=== PATIENT | male | born 1950 | race African-American/Black ===

== ENCOUNTER 2018-09-07 16:36 | Inpatient (IN) | payer OTHER ==
[~2018-09-07] VITALS: Ht 172.7 cm; Wt 77.1 kg
--- NOTE | ~2018-09-07 | HC ---
[facility] [place] [address] CONSULTATION Name: JUAN FRANCISCO HEALY Room #: 459-P ADM IN M.R.#: [id number] Admission: 09/07/18 ������������������ Attend Phys: Edward Carrington MD Discharge: ������������������ Date of : 48 Report #: [id number] THIS REPORT FOR: //name// CC: Daren Carrington DATE OF SERVICE: 09/08/2018 REASON FOR CONSULTATION: Possible osteomyelitis, right lower extremity with possible need for amputation. HISTORY OF PRESENT ILLNESS: The patient is a poor historian. He does report undergoing toe amputation for approximately 6 weeks ago. He reports being on IV antibiotics for a long time and then apparently was told he was going to require a right below-knee amputation. He wanted to be admitted to [facility] for a second opinion. 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 He had this done approximately in 2006. REVIEW OF SYSTEMS: MUSCULOSKELETAL: See HPI. NEUROLOGIC: Denies numbness or tingling of extremities. ALLERGIES: No known drug allergies. PAST MEDICAL HISTORY: Significant for diabetes, hypertension, chronic kidney disease, peripheral vascular disease. PAST SURGICAL HISTORY: Left above knee amputation. MEDICATIONS: The patient's MAR was reviewed, which shows insulin, carvedilol, hydralazine, meropenem, ondansetron and acetaminophen. LABORATORY STUDIES: Done on 09/08/2018, show white blood cell count of 7, hemoglobin 8, hematocrit 24.6, platelet count 349. ESR is 138. INR is 1.2. Chemistry is grossly normal except for elevated blood glucose levels. I will order a hemoglobin A1c. PHYSICAL EXAMINATION: GENERAL: The patient is awake and alert. He converses but is somewhat of a poor historian and appears to have some difficulty with the timeline and was answering questions appropriately. VITAL SIGNS: Most recent vital signs show temperature of 36.8, heart rate 67, respiratory rate 16, blood pressure 123/55, pulse oximetry is 98% on room air. EXTREMITIES: Examination of his right lower extremity shows a wound measuring approximately 10 cm over the medial aspect of the foot consistent with the toe amputation as well as involving a large portion of the plantar surface. There [facility] [address] [place] [address] CONSULTATION Name: JUAN FRANCISCO HEALY Room #: 459-P ADM IN M.R.#: [id number] Admission: 09/07/18 ������������������ Attend Phys: Edward Carrington MD Discharge: ������������������ Date of : 48 Report #: [id number] is a foul odor. There is no significant erythema. He reports sensation and pain when taking off the dressing. I am unable to appreciate a pulse. He has what appears to be one toe remaining that appears to be the second toe. RADIOGRAPHS: AP and lateral of the right foot shows significant calcification of the arteries. No definite bone destruction is noted. The report was reviewed by myself as well, which was consistent with the above-mentioned finding. IMPRESSION AND PLAN: Right diabetic foot wound, postop toe amputations with a nonhealing wound. There are no definite signs of osteomyelitis that I would appreciate. The wound care team is evaluating this patient. We will order an MRI and continue to follow. The patient may need vascular studies to determine if a below-knee or above knee amputation would be appropriate. Questions were encouraged and answered to the best of my ability. ��������������������������������������������� ���������������������������������������� By: ��������������������������������������������� [id number] Cinthya Boucher MD /nt
[2018-09-07 16:38] VITALS: BP 122/64
[2018-09-07 17:26] LABS: BASOPHILS 2.8 % (0.0-2.0); HEMATOCRIT 25.8 % (42.0-52.0); HEMOGLOBIN 8.8 gm/dL (14.0-18.0); LYMPHOCYTES 29.8 % (24.0-44.0); MCH 30.2 pg (26.0-34.0); MCHC 34.1 g/dL (28.0-37.0); MCV 88.5 fL (80.0-100.0); MONOCYTES 6.4 % (1.0-8.0); PLATELET COUNT 382 thou/uL (150-400); RBC 2.91 mil/uL (4.50-6.00); RDW 17.2 % (10.5-14.5); WBC 8.5 thou/uL (4.0-11.0)
[2018-09-07 17:44] LABS: CALCIUM 8.9 mg/dL (8.5-10.1); CREATININE 1.4 mg/dL (0.7-1.3); POTASSIUM 3.8 mmol/L (3.5-5.1)
[2018-09-07 17:49] LABS: ALBUMIN 1.7 g/dL (3.4-5.0); TOTAL BILIRUBIN 0.2 mg/dL (<0.1-1.0); TOTAL PROTEIN 8.2 g/dL (6.4-8.2)
[2018-09-07 20:35] VITALS: BP 118/81
--- NOTE | 2018-09-07 21:00 | NUR ---
Pt. admitted to the unit from the emergency room accompanied by staff. He offers no c/o pain. Admission assessment and history is completed. Requesting something to eat and box lunch given. Bed alarm is on.
[2018-09-07 21:05] VITALS: BP 127/56
[2018-09-08 03:45] VITALS: BP 127/58
--- NOTE | 2018-09-08 04:58 | NUR ---
Pt. rested quietly in the bed all night and offers no complaints. Bed alarm is on.
[2018-09-08 05:45] LABS: HEMATOCRIT 24.6 % (42.0-52.0); MCH 28.9 pg (26.0-34.0); MCHC 32.4 g/dL (28.0-37.0); MCV 89.1 fL (80.0-100.0); RBC 2.76 mil/uL (4.50-6.00); RDW 17.3 % (10.5-14.5)
[2018-09-08 05:54] LABS: INR 1.2; PROTIME 12.8 Seconds (9.3-11.4)
[2018-09-08 06:04] LABS: CALCIUM 8.5 mg/dL (8.5-10.1); CREATININE 1.3 mg/dL (0.7-1.3); POTASSIUM 3.9 mmol/L (3.5-5.1)
[2018-09-08 07:25] VITALS: BP 123/55
[2018-09-08] MEDS ORDERED: AMLODIPINE BESY10 MG PO (07:37)
[2018-09-08] MEDS ORDERED: ASPIR 8181 MG PO (07:38)
[2018-09-08] MEDS ORDERED: PEPCID20 MG (07:42)
[2018-09-08] MEDS ORDERED: CARVEDILOL12.5 MG PO (07:42)
[2018-09-08] MEDS ORDERED: IRON325 PO (07:43)
[2018-09-08] MEDS ORDERED: HYDRALAZINE 2525 MG PO (07:44)
[2018-09-08] MEDS ORDERED: LANTUS100 UNIT/M SUBQ (07:45)
[2018-09-08] MEDS ORDERED: LEVOCETIRIZINE D5 MG PO (07:47)
[2018-09-08] MEDS ORDERED: MIRALAX17 GM PO (07:47)
[2018-09-08] MEDS ORDERED: CENTRUM SILVER1 EAC2 PO (07:48)
[2018-09-08] MEDS ORDERED: NOVOLOG100 UNIT/1 SUBQ ×2 (07:50→07:52)
[2018-09-08] MEDS ORDERED: BETADINE1 EACH TOP (07:55)
--- NOTE | 2018-09-08 15:25 | NUR ---
WOUND CARE: WET TO DRY, ABX, KERLIX. PHYSICIAN ASSESSED, DIET GRANTED, PT DELIGHTED, WATCHING BIG 12 ALL DAY, CATCHING UP W/HEALTHY SNACKS
[2018-09-08 16:30] VITALS: BP 161/67
[2018-09-08 19:44] VITALS: BP 126/68
[2018-09-09 03:10] LABS: GLYCOHEMOGLOBIN (HGB A1C) 7.7 % (4.8-5.6)
--- NOTE | 2018-09-09 03:23 | NUR ---
PT DENIED PAIN,N/V SO FAR.REPOSITIONED WHILE IN BED PER PT'S REQUEST.DRSG TO HIS R FOOT C/D/I.IV FLUID AND IV ABX ADMINISTERED ORDERED.PO FLUIDS ENCOURAGED.URINAL AT BEDSIDE,ADEQUATE OUTPUT NOTED.PT RESTING ON HIS BED AT THIS TIME.CALL LIGHT WITHIN REACH.
[2018-09-09 03:56] VITALS: BP 128/74
--- NOTE | 2018-09-09 04:56 | HC ---
[facility] [place] [address] CONSULTATION Name: JUAN FRANCISCO HEALY Room #: 459- ADM IN M.R.#: [id number] Admission: 09/07/18 ������������������ Attend Phys: Edward Carrington MD Discharge: ������������������ Date of : 48 Report #: [id number] THIS REPORT FOR: //name// CC: Daern Carrington DATE OF SERVICE: 09/08/2018 INFECTIOUS DISEASE CONSULTATION: ATTENDING PHYSICIAN: Dr. Edward Carrington. REASON FOR EVALUATION: Osteomyelitis involving the distal aspect of the right lower extremity. HISTORY OF PRESENT ILLNESS: Chart reviewed, patient examined. This is a 68-year-old gentleman with diabetes mellitus, has been complicated by severe vasculopathy, has had previous left above-knee amputation. He has had chronic ulceration associated with the right lower extremity. It is quite extensive, necrotic and had been evaluated in the other facility, did receive an extended period of parenteral therapy with meropenem. This was for polymicrobial etiology. He was at a long-term facility, felt his wounds were not progressing and potentially worsening. He is not able to give too much details of history. He does state that there is no pain associated with the wounds, although he claims he has good feeling. He has not had fevers, chills or shakes. He does admit to anorexia and weight loss of perhaps 20 pounds. Denies any significant pulmonary or gastrointestinal related complaints. He was on meropenem for extended period of time and was restarted on admission. He was found to have sed rate of 138. His creatinine is borderline elevated at 1.4 and he is anemic. ALLERGIES: None known. MEDICATIONS: Currently include insulin, meropenem, acetaminophen, ondansetron as needed. PAST MEDICAL HISTORY: Diabetes mellitus complicated by vasculopathy, has known renal insufficiency, has peripheral vascular disease, previous left above knee amputation, also has hypertension. SOCIAL HISTORY: Former smoker. No ethanol. No illicit drug use. FAMILY HISTORY: Noncontributory. REVIEW OF SYSTEMS: Ten point review of system is otherwise unremarkable with exception noted above in the history of present illness. [facility] [address] [place] [address] CONSULTATION Name: JUAN FRANCISCO HEALY Room #: 459-P ADM IN M.R.#: [id number] Admission: 09/07/18 ������������������ Attend Phys: Edward Carrington MD Discharge: ������������������ Date of : 48 Report #: [id number] PHYSICAL EXAMINATION: GENERAL: He appears chronically ill, undernourished. He is pleasant, cooperative. I think he may have a degree of some dementia. VITAL SIGNS: T-max of 99, more recently 98, pulse 70, respirations 18, blood pressure 127/58. SKIN: Warm, dry. HEENT: Normocephalic. Extraocular muscles intact. NECK: Supple. LUNGS: Diminished breath sounds, occasional crackle at the base. HEART: Regular. I do not appreciate a murmur. ABDOMEN: Soft, nontender, nondistended. EXTREMITIES: Distal right lower extremity is wrapped, although I did review the photographs that have extensive necrosis that extends certainly above the ankle on to the leg. There is clear malodor component as well. LABORATORY AND X-RAY DATA: Initial CBC: White count of 8.5, H and H 8.8/25.8, platelets of 382. CRP of 74.1. Lactic acid 1.5. Sed rate of 138. Electrolytes: Sodium 140, potassium 3.8, chloride 104, bicarbonate is 31, anion gap of 5, BUN and creatinine 20 and 1.4, glucose of 188, this was nonfasting. LFTs unremarkable. Total protein of 8.2, albumin of 1.7, estimated GFR of 61. PT of 12.8, INR 1.2. ASSESSMENT: Severe infection involving the distal aspect of the right lower extremity. Based on previous results, certainly suggests deep-seated infection, probably osteomyelitis on the available imaging. I think it is unlikely that sort of amputation would definitively cure this infection. I noted surgery is going to evaluate as well. It is unclear based on discussion whether he would be agreeable to that sort of intervention. We will continue the meropenem for now. I will go ahead and get blood cultures since it is not apparent that they have been done. ��������������������������������������������� <ELECTRONICALLY SIGNED> ���������������������������������������� By: Will Rebolledo MD ��������������������������������������������� 09/09/18 0456 [id number] 1939 Will Rebolledo MD /nt
[2018-09-09 10:45] VITALS: BP 125/71
[2018-09-09 14:22] VITALS: BP 124/63
--- NOTE | 2018-09-09 19:20 | NUR ---
PT ALERT AND ORIENTED TIMES THREE, WITH PERIODS OF CONFUSION. VSS, 98%RA, IVF INFUSING PER ORDER. DRESSING TO RIGHT FOOT CHANGED THIS SHIFT SMALL AMOUNT OF BLODDY DRAINAGE NOTED. PT DENIES PAIN/SOA. PT TOLERATES MEDS AND MEALS. WILL CONTINUE TO MONITOR.
[2018-09-09 19:35] VITALS: BP 133/67
--- NOTE | 2018-09-10 01:44 | NUR ---
Assumed care at 1845. Pt resting in bed. Wet to dry dressing applied on wound. Pictures on chart. Pt denies chest pain. No identified needs. Will continue to monitor.
[2018-09-10 04:27] VITALS: BP 135/76
[2018-09-10 08:00] VITALS: BP 138/73
[2018-09-10 15:00] VITALS: BP 145/66
--- NOTE | 2018-09-10 16:47 | NUR ---
PT ADMITTED RELATED TO SOA,AMS. CM REVIEWED CHART AND SPOKE WITH CARE TEAM. CM MET WITH PT AT BEDSIDE THIS DAY. PT IS A&O X4. CM ROLE INTRODUCED. PT INDICATED HE HAD BEEN AT [facility]. PT INDICATED HE HAD BEEN THERE FOR ABOUT 6 WEEKS AND THAT PRIOR TO THAT HE HAD BEEN AT [facility]. PT INDICATED THAT HE PLANS TO RETURN TO [facility] ONCE MEDICALLY STABLE. NAVNEET WITH [facility] VISITED WITH PT AND CM PROVIDED HER WITH UPDATED THIS AFTERNOON. CM TO FOLLOW INDICATED WITH DC PLANNING.
[2018-09-10 19:20] VITALS: BP 143/73
--- NOTE | 2018-09-10 19:55 | NUR ---
Assumed pt care this morning, pt was taken down to have an MRI of his right foot. Pt would be confused at times. Blood sugars done and medication given. Seen by wound care team, dressing changed. Pt refused to eat his dinner claiming he does not eat chicken and pork, informed the pm nurse. Gave the pt a boxed lunch. No issues or complaints verbalized by the pt at this time.
[2018-09-11 04:02] LABS: CALCIUM 8.6 mg/dL (8.5-10.1); CREATININE 1.1 mg/dL (0.7-1.3); POTASSIUM 3.9 mmol/L (3.5-5.1)
[2018-09-11 04:11] VITALS: BP 130/72
[2018-09-11 04:36] LABS: ABSOLUTE NEUTROPHILS 3.9 thou/uL (1.4-8.2); BASOPHILS 0.6 % (0.0-2.0); EOSINOPHILS 1.9 % (0.0-3.0); HEMATOCRIT 26.5 % (42.0-52.0); HEMOGLOBIN 8.7 gm/dL (14.0-18.0); LYMPHOCYTES 36.6 % (24.0-44.0); MCHC 32.7 g/dL (28.0-37.0); MCV 88.8 fL (80.0-100.0); MONOCYTES 10.3 % (1.0-8.0); PLATELET COUNT 385 thou/uL (150-400); POLYS 50.6 % (36.0-66.0); RBC 2.99 mil/uL (4.50-6.00); RDW 16.7 % (10.5-14.5); WBC 7.7 thou/uL (4.0-11.0)
--- NOTE | 2018-09-11 05:18 | NUR ---
Pt. rested quietly during the night when checked on during frequent rounds. He offers no c/o pain. Dressing to his right lower leg is dry and intact. Refuses to be turned and repositioned. Bed alarm is on.
[2018-09-11 08:51] VITALS: BP 128/73
[2018-09-11 09:09] LABS: GLOBULIN TOTAL 4.6 g/dL (2.2-3.9); M-SPIKE Not Observed g/dL (Not Observed)
[2018-09-11 16:21] VITALS: BP 122/64
--- NOTE | 2018-09-11 16:51 | NUR ---
AWAITING VASCULAR STUDIES. CM TO FOLLOW INDICATED WITH DC PLANNING.
--- NOTE | 2018-09-11 18:10 | NUR ---
PT STABLE THROUGHOUT SHIFT. PT HAD LAVAGE TREATMENT WHICH HE TOLERATED WELL. CHANGED DRESSING ON FOOT. PT RESTING COMFORTABLY.
[2018-09-11 21:09] VITALS: BP 124/63
[2018-09-12] VITALS (9 sets, daily range): BP systolic 110–135; BP diastolic 57–75
--- NOTE | 2018-09-12 02:58 | NUR ---
PATIENT AOX4 MAKES NEEDS KNOWN. PATIENT IS NPO SINCE MIDNIGHT PER DR. KAN. RIGHT FOOT HAS A STRONG ODOR, DRESSING IS C/D/I. PATIENT DENIED PAIN OR DISCOMFORT. PATIENT REFUSED TO BE TURNED, PATIENT REFUSED THIS NURSE TO REMOVE RIGHT FOOT PROSTHETIC. PATIENT IN BED ASLEEP AT THIS TIME BREATHING REGULAR AND UNLABOURED.
--- NOTE | 2018-09-12 12:37 | HC ---
[facility] [place] [address] CONSULTATION Name: JUAN FRANCISCO HEALY Room #: 459-P [facility] IN M.R.#: [id number] Admission: 09/07/18 ������������������ Attend Phys: Carolina Meza Discharge: ������������������ Date of : 48 Report #: [id number] THIS REPORT FOR: //name// CC: Daren Meza DATE OF SERVICE: 09/10/2018 CHIEF COMPLAINT: Diabetic foot ulceration of the right foot, status post transmetatarsal amputation. HISTORY OF PRESENT ILLNESS: This is a 68-year-old male patient who has had previous care at [facility]. He has chronic diabetic foot ulceration with osteomyelitis and he is status post left above knee amputation. He has current history of diabetes mellitus and has been a resident at [facility]. He cannot remember a lot of details, but he apparently has had a transmetatarsal amputation done at [facility]. He was told he needed a higher level amputation. He refused. He has been admitted here with infection of the right foot and ongoing need for wound care. He has already been seen by Orthopedics and Infectious Disease and I have been asked to provide an opinion regarding care of his right foot. The patient denies pain associated with this. He cannot recall exactly when he started having trouble with ulcerations. PAST MEDICAL HISTORY: Positive for diabetes mellitus, hypertension, chronic kidney disease, peripheral vascular disease. Unclear as to what procedures he has had for his vascular disease. He has had previous left above knee amputation. MEDICATIONS: Include insulin, carvedilol, meropenem, ondansetron, acetaminophen, hydralazine. ALLERGIES: None. SOCIAL HISTORY: Positive for previous smoker. No alcohol use. FAMILY HISTORY: Noncontributory. REVIEW OF SYSTEMS: CONSTITUTIONAL: The patient denies fever, chills or weight loss. NEUROLOGIC: The patient denies focal weakness, numbness or tingling. EYES: The patient denies any visual changes, redness or drainage. ENT: The patient denies earache, nasal drainage or sore throat. CARDIOVASCULAR: The patient denies chest pain, palpitations or diaphoresis. PULMONARY: The patient denies cough or shortness of breath. GASTROINTESTINAL: The patient denies nausea, vomiting, diarrhea or abdominal [address] [address] CONSULTATION Name: JUAN FRANCISCO HEALY Room #: 459-P [facility] IN M.R.#: [id number] Admission: 09/07/18 ������������������ Attend Phys: Carolina Meza Discharge: ������������������ Date of : 48 Report #: [id number] pain. ORTHOPEDIC: The patient has a previous left above-knee amputation. He has a current transmetatarsal amputation of his right foot. Other systems in a 14-point review of systems are negative. PHYSICAL EXAMINATION: VITAL SIGNS: At this time include temperature 98.6, pulse 77, respiratory rate 20, blood pressure 145/66. GENERAL: This is a chronically ill-appearing male patient who appears to be in no distress. HEENT: Head normocephalic. Nose and throat are clear. NECK: Supple. LUNGS: Clear. HEART: Regular. ABDOMEN: Soft. Bowel sounds present. EXTREMITIES: Demonstrate the left leg appears to have above-knee amputation. He has prosthesis in place. I have not evaluated the stump. He denies that there are any problems with it. Right foot demonstrates a frankly necrotic distal portion of his foot. There is exposed bone. There is some granulation tissue. There is some purulent drainage that can be expressed with compression of the foot. There is a significant amount of tissue loss involving both dorsal and plantar aspects of his right foot. NEUROLOGIC: The patient is alert. He does move all 4 extremities spontaneously. He has significantly diminished sensation in his lower extremities. LABORATORY STUDIES: Include sodium 139, potassium 3.9, chloride 105, CO2 of 28, BUN 17, creatinine 1.3, glucose is 248, white blood cell count is 8.5 with a hemoglobin of 8.8. Hemoglobin A1c is 7.7. Albumin is 1.7. CLINICAL IMPRESSION: 1. Diabetic foot ulceration, status post partial transmetatarsal amputation of the right foot, now with significant tissue necrosis and tissue loss. 2. History of diabetes mellitus. 3. History of peripheral vascular disease, ill-defined. RECOMMENDATIONS: At this point in time, we will check arterial Dopplers and make sure that we have maximized his blood flow. We will recommend a Dakin's moist gauze dressing to the right foot pulse lavage. He has a large amount of necrotic tissue. He may require additional debridement, possibly operative. In my opinion, it is highly unlikely that his foot will be salvageable and I suspect he would be best served with higher level amputation. I have reviewed these findings with Orthopedics. The patient at this point in time; however, is not willing to proceed with higher level amputation. We will do what we can for him. He is being followed by Infectious Disease. We will continue with local [facility] [address] [place] [address] CONSULTATION Name: JUAN FRANCISCO HEALY Room #: 459-P ADM IN M.R.#: [id number] Admission: 09/07/18 ������������������ Attend Phys: Carolina Meza Discharge: ������������������ Date of : 48 Report #: [id number] care, although once again I do not feel that the foot is likely to be salvageable. ��������������������������������������������� <ELECTRONICALLY SIGNED> ���������������������������������������� By: Jesus Driscoll MD ��������������������������������������������� 09/12/18 1237 0719 02 Jesus Driscoll MD /nt
--- NOTE | 2018-09-12 16:17 | NUR ---
PT HAVING ARTERIOGRAM TODAY. CARE TEAM LOOKING AT POSSIBLE BKA MONDAY. PT WILL RETURN TO [facility] ONCE MEDICALLY STABLE. CM TO FOLLOW INDICATED WITH DC PLANNING.
--- NOTE | 2018-09-12 18:15 | NUR ---
Pt A&Ox4, VSS with no c/o of pain. No SOA or distress observed. Right foot dressing intact. Left groin dressing intact and no swelling. Pt left leg is straight and head up at the 30 degree limit. Pt has dinner and is resting. Will continue to monitor.
[2018-09-13 03:57] VITALS: BP 119/65
[2018-09-13 07:15] VITALS: BP 139/69
--- NOTE | 2018-09-13 11:18 | NUR ---
WOUND CONSULT: PT. WAS SEEN TODAY BY DR. SIFUENTES AND MYSELF. PT. HAS A VASCULAR WOUND TO HIS RIGHT FOOT. PT. HAS HAD A FAILED TRANSMET AND THERE IS EXPOSED BONE. PT. TOE THAT IS LEFT IS DRY, AND NECROTIC. THE PLANTER SURFACE OF THE FOOT IS COVER IN SLOUGH AND A FOUL ODOR IS NOTED AT THIS TIME. PT. HAS CONFIRED OSTEO ALONG WITH A SIGNIFICANT INFECTION. ANGIOGRAM WAS ATTEMPTED YESTERDAY AND THERE IS NOT VIABLE OPTIONS FOR BLOOD HINDU TO AID IN BLOOD FLOW. PT. HAS BEEN SEEN BY WOUND CARE, ID AND ORTHO. ALL HAVE EXPLAINED TO THE PT. THAT HE NEEDS TO HAVE AN AMPUTATION AND PT. AT THIS TIME IS REFUSING TO HAVE THIS PROCEDURE. PT. HAS BEEN EXPLAINED ON THE RISK AND BENIFITS OF HIS CHOICE. RECOMMENDATIONS: DAKIN'S MOIST GAUZE DRESSING BID AT THIS TIME. PT. AND STAFF NURSE WERE INSTRUCTED ON PLAN OF CARE.
[2018-09-13 14:20] VITALS: BP 127/67
--- NOTE | 2018-09-13 18:42 | NUR ---
ASSUMED CARE AT 0700. PT A&OX4. PT IS FUSSY TODAY. ORTHO DR MIRANDA AND PT TOLD HER HE DID NOT AGREE THAT HE NEEDED AMPUTATION, PT PROCEEDED TO TELL WOUND PHYSICIAN THAT HE THOUGHT HE WOULD TRY MORE WOUND CARE AND NO AMPUTATION. ID PHYSICIAN SPOKE AT LENGTH OF SEVERITY OF WOUNDS AND NEEDS AND PT STATES HE MAKE A DECISION "SOON". PT DOES NOT WANT TO TURN AND GETS VERY UPSET WHEN YOU ASK HIM TO. PT REFUSED BATH AFTER MUCH ENCOURAGEMENT.
[2018-09-13 21:21] VITALS: BP 151/64
--- NOTE | 2018-09-14 03:18 | NUR ---
PT ANGRY AND AGITATED WITH STAFF PT WAS ABLE TO SLEEP ON AND OFF NO COMPLAINTS OF PAIN PT USED CALL LIGHT EFFECTIVELY.
[2018-09-14 05:47] VITALS: BP 142/63
[2018-09-14 08:00] VITALS: BP 127/60
--- NOTE | 2018-09-14 12:41 | NUR ---
CALL RECEIVED FROM NAVNEET [facility]. REQUESTING CLINICAL UPDATES FOR PATIENT. PRINTED AND FAXED TO HER, VERIFIED RECEIVED. PATIENT IS FROM [facility], PLAN IS FOR PATIENT TO RETURN ONCE MEDICALLY READY. FOLLOWING TO ASSIST WITH DISCHARGE NEED. UNIT SW AWARE.
--- NOTE | 2018-09-14 15:20 | NUR ---
WOUND FOLLOW UP: PT. WAS SEEN TODAY BY DR. SOTO AND MYSELF. PT. IS NOW AGREEABLE TO PROCEED WITH AN RIGHT BKA. RECOMMENDATIONS: CONTINUE WITH CURRENT PLAN OF CARE. PT. AND STAFF NURSE WERE INSTRUCTED ON PLAN OF CARE.
[2018-09-14 15:50] VITALS: BP 145/82
--- NOTE | 2018-09-14 16:11 | NUR ---
PT IS NOW AGREEABLE WITH [facility] PRODEDURE IS SCHEDULE FOR 0830 TOMORROW MORNING. CM NOTIFIED NAVNEET LIAISON WITH [facility]. CM TO FOLLOW INDICATED WITH DC PLANNING.
--- NOTE | 2018-09-14 20:01 | NUR ---
Assumed pt care this am, wound care done and dressing changed. Pt refused a bed bath. Pt agreed to have right bka, consents signed attached to the chart. Blood sugars done and all medication given as per poc. Pt is to be NPO this midnight in preparation for the procedure marybeth. No issues or concerned voiced. POC followed
[2018-09-14 20:51] VITALS: BP 128/56
[2018-09-15] VITALS (8 sets, daily range): BP systolic 126–155; BP diastolic 59–82
[2018-09-15 04:37] LABS: BASOPHILS 0.5 % (0.0-2.0); EOSINOPHILS 2.4 % (0.0-3.0); HEMATOCRIT 24.1 % (42.0-52.0); HEMOGLOBIN 8.1 gm/dL (14.0-18.0); MCH 29.5 pg (26.0-34.0); MCHC 33.5 g/dL (28.0-37.0); MCV 88.2 fL (80.0-100.0); MONOCYTES 9.9 % (1.0-8.0); PLATELET COUNT 350 thou/uL (150-400); POLYS 56.2 % (36.0-66.0); RBC 2.73 mil/uL (4.50-6.00); RDW 17.2 % (10.5-14.5); WBC 7.1 thou/uL (4.0-11.0)
[2018-09-15 04:48] LABS: INR 1.2; PROTIME 12.3 Seconds (9.3-11.4)
[2018-09-15 04:53] LABS: ALBUMIN 1.4 g/dL (3.4-5.0); CALCIUM 8.3 mg/dL (8.5-10.1); CREATININE 0.9 mg/dL (0.7-1.3); POTASSIUM 3.7 mmol/L (3.5-5.1); TOTAL BILIRUBIN 0.1 mg/dL (<0.1-1.0); TOTAL PROTEIN 6.9 g/dL (6.4-8.2)
--- NOTE | 2018-09-15 05:59 | NUR ---
A/O, calm and cooperative; vss, afebrile; no n/v. Hg 8.1 this AM. patient is aware of the coming surgery. NPO after midnight, tolerated well.
--- NOTE | 2018-09-15 08:08 | NUR ---
Pt is on NPO since midnight, asleep when received on shift changed. Pt has not been taken down to OR for the amputation.
[2018-09-16 03:55] VITALS: BP 143/72
[2018-09-16 04:54] LABS: HEMATOCRIT 28.2 % (42.0-52.0); HEMOGLOBIN 9.6 gm/dL (14.0-18.0)
--- NOTE | 2018-09-16 07:38 | NUR ---
PROGRESS PT ALERT AND RESPONSIVE, VSS IVF'S INFUSING WITHOUT DIFFICULTY. REFUSED PAIN MEDICATION. REQUESTED POTATO CHIPS SLEPT MOST OF SHIFT. REPOSITIONED SELF. CONTINUE TO MONITOR
[2018-09-16 08:00] VITALS: BP 136/67
[2018-09-16 14:12] VITALS: BP 125/48
--- NOTE | 2018-09-16 14:58 | NUR ---
ASSUMED CARE AT 0700. AXOX4. R BKA SITE DRESSING DRY AND INTACT. PER ORTHO PAULA MARTIN, LEAVE THE DRESSING IN TILL TOMORROW AND ORTHO WILL EVAL AND GIVE FURTHER RECOMMENDATION FOR CARE. DIET ADVANCED TO HEART HEALTHY. ID D/C [place]. STILL ON IVF. NO S/S ACUTE DISTRESS NOTED OR REPORTED AT THIS TIME. WILL CONT TO MONITOR ANY CHANGES.
--- NOTE | 2018-09-16 19:24 | EKG ---
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 WILKS : 1950 Requested By: Cinthya Boucher Order Number: [id number] MD: Quentin Cardenas Measurements Intervals Holden Rate: 77 P: 38 [place]: 143 QRS: 24 QRSD: 77 T: QT: 390 QTc: 442 Interpretive Statements Sinus rhythm Nonspecific ST/T abnormalities No previous ECG available for comparison Electronically Signed On 09-16-2018 19:24:09 ARGON TESTER by Quentin Cardenas [email or web address] ��������������������������������������������� <ELECTRONICALLY SIGNED> ���������������������������������������� By: Quentin Cardenas MD ��������������������������������������������� 09/16/18 1924 1806 180 Quentin Cardenas MD /ADELE
[2018-09-16 19:25] VITALS: BP 134/44
[2018-09-17 04:42] VITALS: BP 131/56
[2018-09-17 07:34] VITALS: BP 141/72
--- NOTE | 2018-09-17 08:27 | NUR ---
PROGRESS UNEVENTFUL NIGHT. PT DENIES PAIN, REFUSED TURNS BUT ATTEMPTED TO REPOSITION SELF WHEN REQUESTED. IVF'S INFUSING ORDERED, HYDRALAZINE HELD D/T LOW BP. ON RA TELE INTACT CONTINUE POC.
--- NOTE | 2018-09-17 10:11 | NUR ---
dp sent updates to [facility] and notified Annalisa/sade to expect updates.
--- NOTE | 2018-09-17 13:44 | NUR ---
WOUND FOLLOW UP: PT. WAS SEEN TODAY BY DR. SOTO AND MYSELF. PT. UNDERWENT A RIGHT BKA ON 09/15/18. PT. SURGICAL DRESSING WAS CHANGED TODAY BY WOUND CARE. INCSION IS WELL APPROXIMATED AND FREE OF ANY SIGNS OR SYMPTOMS OF INFECTION AT THIS TIME. PER ORTHO WOUND CARE WILL PULL THE PINROSE DRAIN TOMORROW. RECOMMENDATIONS: CONTINUE WITH CURRENT PLAN OF CARE. PT. AND STAFF NURSE WERE INSTRUCTED ON PLAN OF CARE.
[2018-09-17 14:17] VITALS: BP 145/75
--- NOTE | 2018-09-17 14:33 | NUR ---
ASSUME PT CARE AT 0700. VSS ON RA. BS MONITOR INSULIN AND B/P MEDICATIONS GIVEN AT ORDERED. PT IS CONTINUE TO BE ON NS 0.9% 75ML/HR. B/P HAS BEEN ABOUT 141/72 - 140/75. ENCOURAGED PT TO DRINK MORE SO HE DOESN'T NEED TO BE ON FLUID. PHYSICAL THERAPIST WORKED WITH PT AND GOT PT UP TO RECLINER. NO TRANSFER EXCEPT PT AT THIS MOMENT. WOUND NURSE CAME TO CHANGE SURGICAL DRESSING THIS AM. POLY AREA SUPERVISOR CAME TO GIVE PT DIRECT SERVICE PROVIDER STUMP. PT IS MORE CALM AND COOPERATIVE TODAY, BUT REFUSED TAKING BATH BY COMM[employer]ITY [employer] TODAY. USES URINAL AT BEDSIDE. HAD ONE INCONT THIS AM WHEN PHYSICAL THERAPIST GOT HIM UP TO RECLINER. DENIES PAIN. OFFERED SUPPORTIVE CARE. CHANGE DRESSING ON IV ON RIGHT AC. ENCOURAGED PT TO CHANGE POSITION IN BED. FALL PRECAUTION IN PLACE. REASSESSMENT PER CHART. LABS REVIEWED. HGB IS BETTER 9.6. CALL LIGHT WITHIN REACH. ENCOURAGED PT TO VOICE HIS NEEDS. REPORTS SLEPT WELL LAST NIGHT.
--- NOTE | 2018-09-17 15:48 | NUR ---
PT AND OT TO EVAL PT. CLINICAL UPDATES SENT TO [facility] THIS DAY. IT IS ANTICPATED THAT PT WILL RETURN TO [facility] FOR SKILLED REHAB SERVICES ONCE MEDICALLY STABLE. CM TO FOLLOW INDICATED WITH DC PLANNING.
[2018-09-17 20:43] VITALS: BP 146/68
[2018-09-18 04:42] VITALS: BP 150/79
[2018-09-18 07:30] VITALS: BP 140/75
--- NOTE | 2018-09-18 08:10 | NUR ---
PROGRESS PT ALERT AND ORIENTED, DENIEES PAIN, REFUSING ASSISTANCE REPOSITIONING BUT STATES HE REPOSITIONS SELF BUT CONSISTENTLY SUPINE. 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
[2018-09-18 08:25] VITALS: BP 140/75
--- NOTE | 2018-09-18 11:28 | NUR ---
patient will dc today to [facility], Discharge papers faxed to Annalisa/MELISSA and to department secretary Gilma on 4w to include in cc. Pickup time is 130 to 2pm today amando lyn. No family to notifiy. DP called Annalisa to confirm pu time and let her know to expect dc papers and to call if not received.
--- NOTE | 2018-09-18 13:06 | NUR ---
WOUND FOLLOW UP: PT. WAS SEEN TODAY BY DR. BURRIS AND MYSELF. PT. LILY DRAIN WAS REMOVED TODAY BY WOUND CARE. SURGICAL INCSION IS WELL APPROXIMATED AND PT. TOLERATED PROCEDURE AND DRESSING CHANGE WELL. RECOMMENDATIONS: CONTINUE WITH CURRENT PLAN OF CARE. PT. AND STAFF NURSE WERE INSTRUCTED ON PLAN OF CARE.
--- NOTE | 2018-09-18 13:07 | NUR ---
ASSUMED CARE AT 0700. AXOX4. SEEN BY AT BEDSIDE. RECEIVED AN ORDER TO D/C BACK TO [facility]. REPORT CALLED TO TALYA. DRESSING ON R BKA SITE RENDERED WITH WOUND CARE TEAM. 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 VSS. IV REMOVED. NO S/S ACUTE DISTRESS NOTED OR REPORTED UPON DEPARTURE. CHART COPY AND PRESCRIPTIONS SEND WITH PT WELL BELONGINGS. LEFT THE FLOOR IN STABLE CONDITION.
--- NOTE | 2018-09-18 14:25 | NUR ---
CARE TEAM INDICATED THAT PT IS MEDICALLY STABLE TO DISCHARGE BACK TO [facility] TODAY. CM NOTIFIED LIAISON [facility]ET AND [facility]SPORT WAS ARRANGED BETWEEM 1330 AND 1430. CHART COPY ORDERED. ORFERS WERE FACES. SHART COPY ORDERED. REPORT TO BE CALLED TO . PT IS AWARE AND AGREEABLE, NO OTHER CM IINTERVENTION INDICATED AT THIS TIME. CASE CLOSED.
--- NOTE | 2018-09-19 10:09 | O ---
[facility] [place] [address] OPERATIVE REPORT Name: JUAN FRANCISCO HEALY Room #: 459-P [facility] IN M.R.#: [id number] Admission: 09/07/18 ������������������ Attend Phys: Carolina Meza Discharge: 09/18/18 ������������������ Date of : 48 Report #: [id number] THIS REPORT FOR: //name// CC: Daren Meza PREOPERATIVE DIAGNOSES: Right lower extremity nonhealing ulcerations, right foot osteomyelitis, diabetic neuropathy and peripheral vascular disease. POSTOPERATIVE DIAGNOSES: Right lower extremity nonhealing ulcerations, right foot osteomyelitis, diabetic neuropathy and peripheral vascular disease. PROCEDURE PERFORMED: Right below knee amputation. SURGEON: Avery Ortez MD WELDING MACHINE OPERATOR RESISTANCE: Tayler Diaz PA-C. ANESTHESIA: General. FLUIDS: Please see anesthesia records. ESTIMATED BLOOD LOSS: Approximately 25 mL. SPECIMENS: Right lower extremity/foot. DESCRIPTION OF PROCEDURE: After proper identification of the patient and operative site in preoperative holding area, the operative site was signed by myself. Prophylactic antibiotics given. The patient has been on antibiotics for his nonhealing wound. The patient is originally being seen and treated by my partner, Dr. Cinthya Boucher for his nonhealing right lower extremity ulcerations and osteomyelitis since his admission. He has also been at other hospital institutions in the city recently. He has consented to the above procedure and wished to proceed with the above. We reviewed the potential risks, benefits, alternatives and complications of his injury and treatment. He was brought back to the operative suite after induction of satisfactory general anesthesia. The right lower extremity was elevated, tourniquet was applied to the upper thigh. The leg was sterilely prepped and draped in the usual manner with his nonhealing wound and ulcerations of the foot covered sterilely. An incision was planned for the below knee amputation with a fishmouth type incision with a longer posterior myocutaneous flap. Skin was incised sharply. Full thickness skin flaps were developed. Tibia was exposed subperiosteally and an osteotomy was performed approximately a handsbreadth below the level of the knee joint. Neurovascular structures were identified in the anterolateral compartment. They were tied with silk ties, cauterized and nerves were retracted distally and sectioned proximally. Next, the fibula was identified and resected and posterior compartment vasculature or neurovascular bundles were [address] [address] OPERATIVE REPORT Name: NIRAJJUAN FRANCISCO Room #: 459-P [facility] M.R.#: [id number] Admission: 09/07/18 ������������������ Attend Phys: Carolina Meza Discharge: 09/18/18 ������������������ Date of : 48 Report #: [id number] identified and treated in similar manner. A posterior myocutaneous flap was fashioned that nicely covered the wound. Edges of the bone had been contoured as well as rasped. No sharp or protruding edges were noted. Tourniquet was deflated. There was excellent hemostasis. A punctate bleeding from the soft tissues was noted and this appeared to be all viable tissue. This wound was irrigated with antibiotic irrigant. A Marcelle drain was placed and the fascial layer was repaired with #1 Vicryl, 0 Vicryl, more subcutaneous tissues with 2-0 Vicryl and then closure was followed with nylon sutures. [place] drain was able to be pulled in the medial and lateral directions and verified to not be sewn in. Sterile compressive dressing was applied. He was awakened and transferred to the recovery room in stable condition. ��������������������������������������������� <ELECTRONICALLY SIGNED> ���������������������������������������� By: Avery Ortez MD ��������������������������������������������� 09/19/18 1009 [id number] [id number] Avery Ortez MD /nt
--- NOTE | 2018-09-20 16:07 | PATH ---
[facility] [address] [place] [address] PATHOLOGY RPT PROCEDURE Name: MATT HEALY Room #: 459-P DIS IN M.R.#: [id number] ������������������ Admission: 09/07/18 ������������������ Date of : 48 Discharge: 09/18/18 Report #: [id number] Path Case #: [id number] [facility] Accession Number: [id number] . 01 Material submitted: . RIGHT LOW LEG . 01 Clinical history: . Osteomyelitis . 02 Diagnosis: Leg, right low leg, below knee amputation: - Gangrenous necrosis and marked acute inflammation extending to underlying bone associated with osteonecrosis, consistent with a history of osteomyelitis. - Vessels showing moderate calcific atherosclerosis. - Skin and bone margins viable. (IUV:pit 09/20/2018) QTP/09/20/2018 . 02 Electronically signed: . Vinita Winslow MD, Pathologist NPI- [id number] . 01 Gross description: . Received wrapped in a red biohazard bag labeled "Matt Healy, right low leg", is a right leg below the knee amputation measuring 30.0 cm from proximal skin resection margin and 17.0 cm from heel to distal tip of fifth toe. Extending above the soft tissue resection margin is a segment of tibia measuring 3.0 cm in length by 3.5 x 2.2 cm and fibula, 2.6 cm in length by 1.0 x 0.8 cm. The proximal skin, underlying soft tissue, muscle and bone margins appear viable. The first four digits are previously amputated. The amputation site and the 1/2 of the plantar surface is covered by garcia-white, purulent, necrotic material. The fifth toe is black-brown necrotic and mummified an easy to cut. In addition, there is a ulcer on the dorsal forefoot measuring 2.0 by 1.2 cm with a necrotic ulcer bed. Sectioning through the previously amputated site shows necrotic skin and underlying soft tissue that possible extends to the underlying bone. The vessel shows intimal thickening. [employer] Hrms Developer tissue is submitted as follows: A1. Proximal margin, skin and underlying soft tissue and muscle A2. Proximal bone margin after decalcification (tibia = bone marrow) A3. Vascular margin A4. Necrotic tissue to underlying bone and cross-section of fifth digit inked blue, after calcification A5. Vasculature (proximal inked blue) ([facility]; 09/18/2018) [address] [address] PATHOLOGY RPT PROCEDURE Name: MATT HEALY Room #: 459-P DIS IN M.R.#: [id number] ������������������ Admission: 09/07/18 ������������������ Date of : 48 Discharge: 09/18/18 Report #: [id number] Path Case #: [id number] SHS/SHS . 02 Pathologist provided ICD-10: M87.861, I70.261 . 02 CPT . 87511, [id number] Specimen Comment: A courtesy copy of this report has been sent to Specimen Comment: [phone], , . Specimen Comment: Report sent to ,DR SCOTT / DR MADDEN Performed at: [address] [facility], [place] [id number] MD Yash Ralph MD Phone: [phone] Performed at: [address] [id number] MD Vinita Winslow MD Phone: [phone]
== END 2018-09-18 13:30 | DRG 239 ==
LOC: ER 16:36 → 4W 19:39 → EROBS 19:39 → 4W 20:40
PROVIDERS: Anesthesiology; Emergency Medicine; Internal Medicine; Nurse Practitioner Family; Orthopaedic Surgery Hand Surgery; Physician Assistant Surgical; Specialist; ADMIT Hospitalist
PROC: B4181ZZ Fluoroscopy of Bilateral Renal Arteries using Low Osmolar Contrast (ICD-10-PCS; principal; 2018-09-12)
PROC: B41D1ZZ Fluoroscopy of Aorta and Bilateral Lower Extremity Arteries using Low Osmolar Contrast (ICD-10-PCS; principal; 2018-09-12)
PROC: 0Y6H0Z3 Detachment at Right Lower Leg, Low, Open Approach (ICD-10-PCS; 2018-09-15)
PROC: 0KUQ07Z Supplement Right Upper Leg Muscle with Autologous Tissue Substitute, Open Approach (ICD-10-PCS; 2018-09-15)
DX: E11.52 Type 2 diabetes mellitus with diabetic peripheral angiopathy with gangrene (principal); E43 Unspecified severe protein-calorie malnutrition; G92 Toxic encephalopathy; M86.8X7 Other osteomyelitis, ankle and foot; L97.518 Non-pressure chronic ulcer of other part of right foot with other specified severity; N17.9 Acute kidney failure, unspecified; E11.69 Type 2 diabetes mellitus with other specified complication; E11.621 Type 2 diabetes mellitus with foot ulcer; I70.201 Unspecified atherosclerosis of native arteries of extremities, right leg; I12.9 Hypertensive chronic kidney disease with stage 1 through stage 4 chronic kidney disease, or unspecified chronic kidney disease; E11.65 Type 2 diabetes mellitus with hyperglycemia; E78.5 Hyperlipidemia, unspecified; D63.8 Anemia in other chronic diseases classified elsewhere; E11.22 Type 2 diabetes mellitus with diabetic chronic kidney disease; E11.40 Type 2 diabetes mellitus with diabetic neuropathy, unspecified; N18.9 Chronic kidney disease, unspecified; Z68.25 Body mass index [BMI] 25.0-25.9, adult; Z87.891 Personal history of nicotine dependence; Z89.612 Acquired absence of left leg above knee; Z79.4 Long term (current) use of insulin; Z79.82 Long term (current) use of aspirin; Z79.899 Other long term (current) drug therapy
CPT/HCPCS: 10040; 50101; 50386; 51412; 53000; 56524; 56525; 56527; 57091; 62110; 62900; 70005

== ENCOUNTER 2020-05-20 17:25 | Emergency (ER) | payer OTHER ==
[~2020-05-20] VITALS: Ht 172.7 cm; Wt 83.9 kg
[~2020-05-20 17:25] MED LIST: AMLODIPINE BESY10 MG PO; ASPIR 8181 MG PO; BETADINE1 EACH TOP; CARVEDILOL12.5 MG PO; CENTRUM SILVER1 EAC2 PO; HYDRALAZINE 2525 MG PO; IRON325 PO; LANTUS100 UNIT/M SUBQ; LEVOCETIRIZINE D5 MG PO; MIRALAX17 GM PO; NOVOLOG100 UNIT/1 SUBQ; PEPCID20 MG
[2020-05-20 18:01] LABS: ABSOLUTE NEUTROPHILS 5.2 thou/uL (1.4-8.2); BASOPHILS 1.1 % (0.0-2.0); EOSINOPHILS 1.3 % (0.0-3.0); HEMATOCRIT 43.8 % (42.0-52.0); HEMOGLOBIN 14.7 gm/dL (14.0-18.0); LYMPHOCYTES 20.6 % (24.0-44.0); MCH 31.3 pg (26.0-34.0); MCHC 33.5 g/dL (28.0-37.0); MCV 93.5 fL (80.0-100.0); MONOCYTES 6.8 % (1.0-8.0); PLATELET COUNT 249 thou/uL (150-400); POLYS 70.2 % (36.0-66.0); RBC 4.68 mil/uL (4.50-6.00); RDW 14.2 % (10.5-14.5); WBC 7.4 thou/uL (4.0-11.0)
[2020-05-20 18:11] LABS: ANION GAP 6 mmol/L (7-16); BUN 11 mg/dL (7-18); CALCIUM 9.2 mg/dL (8.5-10.1); CHLORIDE 102 mmol/L (98-107); CO2 29 mmol/L (21-32); CREATININE 1.4 mg/dL (0.7-1.3); GLUCOSE 245 mg/dL (74-106); SODIUM 137 mmol/L (136-145)
[2020-05-20 18:21] LABS: ALBUMIN 2.9 g/dL (3.4-5.0); SGOT 23 U/L (15-37); SGPT 15 U/L (30-65); TOTAL BILIRUBIN 0.3 mg/dL (0.2-1.0); TOTAL PROTEIN 7.5 g/dL (6.4-8.2); TROPONIN-I <0.06 ng/mL (<0.06)
[2020-05-20 20:56] VITALS: BP 135/70
--- NOTE | 2020-05-21 07:38 | EKG ---
[facility] [place] [address] ELECTROCARDIOGRAM REPORT Name: JUAN FRANCISCO HEALY [id number] Admission: 05/20/20 Attend Phys: Discharge: 05/20/20 Date of : 48 Report #: [id number] THIS REPORT FOR: cc: Daren Palomares James D. DO Santiago, Patrick MD 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 : 1950 Requested By: Liz Raymond Order Number: [id number] MD: Daniel Smith Measurements Intervals [place] Rate: 73 P: 39 MS: 158 QRS: -5 QRSD: 79 T: 178 QT: 367 QTc: 405 Interpretive Statements Sinus rhythm Abnormal T, consider ischemia, lateral leads Baseline wander in lead(s) II Compared to ECG 09/14/2018 18:06:04 T-wave abnormality now present Possible ischemia now present Electronically Signed On 05-21-2020 7:38:02 EDUCATIONAL THERAPIST by Daniel Smith [email or web address] <ELECTRONICALLY SIGNED> By: Daniel Smith MD, FACC 05/21/20 0738 12 12 Daniel Smith MD, FAC /EPI
== END 2020-05-20 20:56 ==
LOC: ER 17:25
PROVIDERS: Student in an Organized Health Care Education/Training Program
DX: I12.9 Hypertensive chronic kidney disease with stage 1 through stage 4 chronic kidney disease, or unspecified chronic kidney disease (principal); E11.22 Type 2 diabetes mellitus with diabetic chronic kidney disease; N18.9 Chronic kidney disease, unspecified; R42 Dizziness and giddiness; R19.7 Diarrhea, unspecified; R10.9 Unspecified abdominal pain; Z79.82 Long term (current) use of aspirin; Z79.899 Other long term (current) drug therapy; Z79.4 Long term (current) use of insulin; Z88.0 Allergy status to penicillin; Z87.891 Personal history of nicotine dependence; Z89.512 Acquired absence of left leg below knee; Z89.511 Acquired absence of right leg below knee